=== PATIENT | female | born 1985 | race Two or more races ===

== ENCOUNTER → 2022-12-16 | Outpatient (CLI) | payer BC ==
[2022-12-16 11:54] LABS: Basophils # (auto) 0 10 ^3/uL (0-0.2); Basophils % (auto) 0.3 % (0.0-2.0); Eosinophils # (auto) 0.2 10 ^3/uL (0-0.8); Eosinophils % (auto) 1.6 % (0.0-7.0); Hematocrit 39.6 % (36.0-46.0); Hemoglobin 13.7 g/dL (12.2-16.2); Lymphocytes # (auto) 2.5 10 ^3/uL (0.4-5.4); Lymphocytes % (auto) 16.6 % (10.0-50.0); Mean Corpuscular Hemoglobin 27.8 pg (28.0-32.0); Mean Corpuscular Hgb Conc. 34.5 g/dL (32.0-36.0); Mean Corpuscular Volume 80.4 fL (80.0-100.0); Monocytes # (auto) 0.6 10 ^3/uL (0-1.3); Monocytes % (auto) 4.1 % (0.0-12.0); Neutrophils # (auto) 11.8 10 ^3/uL (1.6-8.6); Neutrophils % (auto) 77.4 % (37.0-80.0); Nucleated Red Blood Cells % 0.1 %; Red Blood Cells 4.93 10^6/uL (4.0-5.20); White Blood Cell 15.3 10^3/uL (4.4-10.8)
[2022-12-16 12:08] LABS: Urine Bacteria NONE SEEN /hpf (None Seen); Urine Blood Negative /uL (Negative); Urine Specific Gravity 1.019 (1.001-1.035); Urine WBC 1 /hpf (0 - 5)
[2022-12-16 12:22] LABS: Albumin 3.4 g/dL (3.4-5.0); Potassium 4.4 mmol/L (3.5-5.1)
[2022-12-16 12:29] LABS: BUN/Creatinine Ratio 10.3 (10.0-20.0); Bilirubin, Total 0.3 mg/dL (0.2-1.0); Calcium 9.2 mg/dL (8.5-10.1); Total Protein 7.7 g/dL (6.4-8.2); Uric Acid 4.8 mg/dL (2.6-6.0)
== END | disposition home or self-care (01) ==
LOC: LAB 11:23
PROVIDERS: ATTEND Internal Medicine
DX: I10 Essential (primary) hypertension (principal); E66.9 Obesity, unspecified; R10.11 Right upper quadrant pain; M25.522 Pain in left elbow
CPT/HCPCS: 36415; 80053; 80061; 81001; 83036; 84550; 85025; 85652

== ENCOUNTER → 2023-03-05 | Outpatient (CLI) | payer BC ==
[2023-03-05 09:11] LABS: T3 Total 1.54 ng/mL (0.60-1.81)
[2023-03-05 09:12] LABS: Free T3 3.54 pg/mL (2.3-4.2)
== END | disposition home or self-care (01) ==
LOC: LAB 07:48
PROVIDERS: ATTEND Internal Medicine
DX: E03.9 Hypothyroidism, unspecified (principal)
CPT/HCPCS: 36415; 84443; 84480; 84481

== ENCOUNTER → 2024-03-22 | Emergency (ER) | payer BC ==
[~2024-03-22] VITALS: Ht 162.6 cm; Wt 136.3 kg
[~2024-03-22] MED LIST: LIDO5DIS21 TOP
[2024-03-22 07:41] VITALS: PULSE 76; RESP 17; O2SAT 95
[2024-03-22 08:37] LABS: Eosinophils # (auto) 0.3 10 ^3/uL (0-0.8); Eosinophils % (auto) 2.7 % (0.0-7.0); White Blood Cell 12.1 10^3/uL (4.4-10.8)
[2024-03-22 08:39] LABS: Basophils # (auto) 0.1 10 ^3/uL (0-0.2); Basophils % (auto) 0.6 % (0.0-2.0); Hematocrit 37.6 % (36.0-46.0); Hemoglobin 12.6 g/dL (12.2-16.2); Lymphocytes # (auto) 3.2 10 ^3/uL (0.4-5.4); Lymphocytes % (auto) 26.8 % (10.0-50.0); Mean Corpuscular Hemoglobin 27.1 pg (28.0-32.0); Mean Corpuscular Hgb Conc. 33.4 g/dL (32.0-36.0); Mean Corpuscular Volume 81.3 fL (80.0-100.0); Monocytes # (auto) 0.7 10 ^3/uL (0-1.3); Monocytes % (auto) 5.9 % (0.0-12.0); Neutrophils # (auto) 7.8 10 ^3/uL (1.6-8.6); Nucleated Red Blood Cells % 0.2 %; Red Blood Cells 4.63 10^6/uL (4.0-5.20); Red Cell Distribution Width 15.3 % (11.8-14.3)
[2024-03-22 08:41] LABS: Urine Bacteria None Seen /hpf (None Seen)
[2024-03-22 08:49] LABS: Alanine Aminotransferase 30 U/L (7-40); Albumin 4.3 g/dL (3.2-4.8); Alkaline Phosphatase 108 U/L (46-116); Anion Gap 5 (5-15); Aspartate Aminotransferase 24 U/L (13-40); BUN/Creatinine Ratio 18.8 (10.0-20.0); Bilirubin, Total 0.4 mg/dL (0.2-1.0); Blood Urea Nitrogen 12 mg/dL (9-23); Calcium 9.5 mg/dL (8.5-10.1); Carbon Dioxide 28 mmol/L (20-30); Chloride 107 mmol/L (98-107); Glucose 114 mg/dL (74-106); Potassium 3.8 mmol/L (3.5-5.1); Sodium 140 mmol/L (136-145)
[2024-03-22 08:55] LABS: Urine Blood Negative /uL (Negative); Urine Clarity Clear (Clear); Urine Color Yellow (Yellow); Urine Mucus FEW (None Seen); Urine Protein, UAD TRACE (Negative); Urine Specific Gravity 1.034 (1.001-1.035); Urine Urobilinogen 2 mg/dL (Negative); Urine WBC 1 /hpf (0 - 5); Urine pH 5.5 (5.0-9.0)
[2024-03-22] MEDS: SODIUM CHLORIDE 0.9% 1,000 ML IV ONE (10:18)
[2024-03-22] MEDS: KETOROLAC TROMETH 30 MG/ML 1ML VIAL IV ONE ×2 (10:21→11:37)
[2024-03-22] MEDS: TAMSULOSIN HYDROCHLORIDE 0.4 MG CAP PO ONE (10:21)
[2024-03-22] MEDS: ACETAMINOPHEN 325 MG TAB PO ONE (10:21)
[2024-03-22 12:00] VITALS: BP 121/63; RESP 17; O2SAT 96
[2024-03-22 12:21] VITALS: PULSE 68
== END | disposition home or self-care (01) ==
LOC: ER 07:21 → EEVIPCON 07:21
DX: S39.011A Strain of muscle, fascia and tendon of abdomen, initial encounter (principal); R10.2 Pelvic and perineal pain; E86.0 Dehydration; K57.90 Diverticulosis of intestine, part unspecified, without perforation or abscess without bleeding; K76.89 Other specified diseases of liver; I10 Essential (primary) hypertension; E03.9 Hypothyroidism, unspecified; Z88.2 Allergy status to sulfonamides; Z91.013 Allergy to seafood; X58.XXXA Exposure to other specified factors, initial encounter; Y93.89 Activity, other specified; Y92.89 Other specified places as the place of occurrence of the external cause; Y99.8 Other external cause status
CPT/HCPCS: 36415; 74176; 80053; 81001; 84702; 85025; 96361; 96374; 96376; 99285; J1885; J7030

== ENCOUNTER → 2025-02-04 | Outpatient (CLI) | payer BC ==
[2025-02-04 13:04] LABS: Urine Bacteria None Seen /hpf (None Seen)
[2025-02-04 13:10] LABS: Basophils # (auto) 0 10 ^3/uL (0-0.2); Basophils % (auto) 0.1 % (0.0-2.0); Eosinophils # (auto) 0.2 10 ^3/uL (0-0.8); Eosinophils % (auto) 1.1 % (0.0-7.0); Hemoglobin 12.3 g/dL (12.2-16.2); Lymphocytes # (auto) 2.2 10 ^3/uL (0.4-5.4); Lymphocytes % (auto) 16.1 % (10.0-50.0); Mean Corpuscular Hemoglobin 26.8 pg (28.0-32.0); Mean Corpuscular Hgb Conc. 33.3 g/dL (32.0-36.0); Mean Corpuscular Volume 80.6 fL (80.0-100.0); Monocytes # (auto) 0.6 10 ^3/uL (0-1.3); Monocytes % (auto) 4.2 % (0.0-12.0); Neutrophils # (auto) 10.7 10 ^3/uL (1.6-8.6); Neutrophils % (auto) 78.5 % (37.0-80.0); Platelet Count (auto) 326 10^3/uL (140-450); Red Blood Cells 4.59 10^6/uL (4.0-5.20); Red Cell Distribution Width 15.2 % (11.8-14.3); White Blood Cell 13.6 10^3/uL (4.4-10.8)
[2025-02-04 13:16] LABS: Urine Blood Negative /uL (Negative); Urine Clarity Clear (Clear); Urine Color Light-Yellow (Yellow); Urine Mucus FEW (None Seen); Urine Protein, UAD Negative (Negative); Urine Squamous Epithelial Cell FEW /hpf (<5); Urine Urobilinogen Normal (Negative); Urine WBC < 1 /HPF (0-5); Urine pH 5.5 (5.0-9.0)
[2025-02-04 13:55] LABS: Creatinine, Urine 115.2 mg/dL (30.0-125.0)
[2025-02-04 14:08] LABS: CRP High Sensitivity 2.61 mg/dL (<1.0)
[2025-02-04 14:50] LABS: Erythrocyte Sedimentation Rate 19 mm/hr (0-20)
[2025-02-05 08:07] LABS: Complement C3 173 mg/dL (82-167); Rheumatoid Arthritis Factor <10.0 IU/mL (<14.0)
[2025-02-05 09:06] LABS: Anti-Nuclear Antibody Direct Negative (Negative); Anti-dsDNA Antibody 3 IU/mL (0-9); Antiscleroderma-70 Antibody <0.2 AI (0.0-0.9); RNP Antibody 0.6 AI (0.0-0.9); Sjogren's Anti-SS-A Antibody <0.2 AI (0.0-0.9); Sjogren's Anti-SS-B Antibody <0.2 AI (0.0-0.9); Smith Antibody <0.2 AI (0.0-0.9)
[2025-02-05 11:07] LABS: Thyroid Peroxidase (TPO) Ab 11 IU/mL (0-34)
[2025-02-07 17:07] LABS: Actin (Smooth Muscle) Antibody 17 Units (0-19); Mitochondrial (M2) Antibody <20.0 Units (0.0-20.0)
[2025-02-08 07:07] LABS: Antiparietal Cell Antibody 7.7 Units (0.0-20.0)
[2025-02-08 12:07] LABS: Anti-Striated Muscle Antibody Negative (Neg:<1:100)
== END | disposition home or self-care (01) ==
LOC: LAB 12:19
PROVIDERS: ATTEND Internal Medicine
DX: I10 Essential (primary) hypertension (principal); R73.03 Prediabetes; R76.0 Raised antibody titer; E66.9 Obesity, unspecified
CPT/HCPCS: 36415; 80061; 81001; 82043; 82570; 83036; 84443; 85025; 85652; 86141; 86160; 86225; 86235; 86376; 86431

== ENCOUNTER 2025-06-01 14:33 | Emergency (ER) | payer BC ==
[~2025-06-01] VITALS: Ht 165.1 cm; Wt 154.5 kg
[2025-06-01 14:40] VITALS: PULSE 103; RESP 18; O2SAT 100
[2025-06-01] MEDS: methylPREDNISolone SOD SUCC 125 MG/2 ML VL IV ONE (14:42)
[2025-06-01] MEDS: IPRATROPIUM BROM 0.5 MG/2.5ML INH SOL NEB ONE ×2 (14:56→16:30)
[2025-06-01] MEDS: ALBUTEROL SULF 2.5 MG/0.5ML(0.5%) NEB SOLN NEB ONE ×2 (14:56→16:29)
--- NOTE | 2025-06-01 14:56 | ED.PDOC ---
HPI Allergic reaction HPI Comments 40-year-old female, with a history of shellfish allergies, presents with chief complaint of shortness of breath and generalized itching sensation status post known allergen exposure. Patient reports eating a clam chowder soup bread bowl by accident for lunch, thinking it that potato chowder soup, instead. Denies any throat or facial swelling, nausea, vomiting, or further associated symptoms. Chief Complaint: Allergic Reaction Time Seen by MD: 14:30 Reviewed Notes: Nurses Notes, Medications, Allergies Allergies: Coded Allergies: Shellfish Allergy (Verified Allergy, Unknown, 03/22/24) Sulfa Antibiotics (Verified Allergy, Unknown, 03/22/24) Sulfamethoxazole w/Trimethoprim (Verified Allergy, Unknown, 06/01/25) Home Meds Active Scripts Lidocaine (LIDODERM 5% TOPICAL PATCH) 1 Patch Ph, 1 PATCH TOP DAILY, #30 PATCH 1 Refill Prov:RICARDO OREILLY MD 03/22/24 Information Source: Patient Mode of Arrival: Ambulatory Past Medical History PAST MEDICAL HISTORY: HTN, Thyroid Past Medical History (Other): Morbid obesity Surgical History: Denies all surgeries HAND TRIMMER History: No Pertinent HAND TRIMMER History Family History Family History: Reviewed,noncontributory to illness, No family hx of Cancer, No family hx of DM, No family hx of Heart monica, No family hx of HTN, No family hx ofKidney monica, No family hx of Liver monica, No family hx of Lung monica, No family hx of Stroke Social History Smoker: Non-Smoker Alcohol: Denies ETOH Use Drugs: Denies Drug Use Lives In: Home All Other Systems: Reviewed and Negative (Comprehensive review of systems are negative unless otherwise stated in HPI) Physical Exam General Appearance: Moderate Distress HEENT: Normal ENT Inspection, Pharynx Normal, TMs Normal Neck: Full Range of Motion, Non-Tender, Normal, Normal Inspection Respiratory: Chest Non-Tender, Lungs Clear, No Accessory Muscle Use, No Respiratory Distress, Normal Breath Sounds Cardiovascular: No Edema, No JVD, No Murmur, No Gallop, Normal Peripheral Pul ses, Regular Rate/Rhythm Breast Exam: Deferred Gastrointestinal: No Organomegaly, Non Tender, No Pulsatile Mass, Normal Bowel Sounds, Soft Genitalia: Deferred Pelvic: Deferred Rectal: Deferred Extremities: No calf tenderness, Normal capillary refill, Normal inspection, Normal range of motion, Non-tender, No pedal edema Musculoskeletal : Apperance: Normal Neurologic: Alert, 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 Was a procedure done?: No Differential diagnosis (all) Differential Diagnosis: Anaphylaxis, Angioedema, Other (Known allergen exposure) X-Ray, Labs, Meds, VS Vital Signs Date Time Temp Pulse Resp B/P (MAP) Pulse Ox O2 Delivery O2 Flow Rate FiO2 06/01/25 16:29 16 93 Room Air* 0 21 06/01/25 14:56 20 100 Simple Mask* 7 60 06/01/25 14:51 102 24 179/114 100 Current Medications Medications (Trade) Dose Ordered Sig/Michelle Route Start Time Stop Time Status Last Admin Epinephrine HCl 0.3 mg ONCE ONCE SC 06/01/25 14:45 06/01/25 14:46 DC 06/01/25 14:42 Methylprednisolone Sodium Succinate (Solu Medrol) 125 mg ONCE ONCE IV 06/01/25 14:45 06/01/25 14:46 DC 06/01/25 14:42 Ipratropium [place] (Atrovent Medneb) 0.5 mg ONCE ONCE NEB 06/01/25 14:45 06/01/25 14:47 DC 06/01/25 14:56 Albuterol (Ventolin Medneb) 5 mg ONCE ONCE NEB 06/01/25 14:45 06/01/25 14:47 DC 06/01/25 14:56 Ondansetron HCl (Zofran) 4 mg ONCE ONCE IV 06/01/25 14:45 06/01/25 14:47 DC 06/01/25 15:09 Albuterol (Ventolin Medneb) 5 mg ONCE ONCE NEB 06/01/25 16:30 06/01/25 16:31 DC 06/01/25 16:29 Ipratropium [place] (Atrovent Medneb) 0.5 mg ONCE ONCE NEB 06/01/25 16:30 06/01/25 16:31 DC 06/01/25 16:30 Patient alert. Complaining of shortness a breath. Vitals stable. Answering all questions. She ate seafood which she is allergic to. Accidental. Was given steroid. Was given breathing treatment. Anxious. Feeling much better after treatment. Satisfied with the treatment plan. Was given prescription of prednisone. Explained to the patient. Was told to follow up with her primary care physician. Was told to come back if there is any problem. Time of 1ST Reevaluation: 15:00 Reevaluation 1ST: Unchanged Patient Education/Counseling: Diagnosis, Treatment, Need For Follow Up Family Education/Counseling: No Family Present SEPSIS Sepsis Screen Vital Signs Date Time Temp Pulse Resp B/P (MAP) Pulse Ox O2 Delivery O2 Flow Rate FiO2 06/01/25 16:29 16 93 Room Air* 0 21 06/01/25 14:56 20 100 Simple Mask* 7 60 06/01/25 14:51 102 24 179/114 100 Medications Medications Dose Ordered Sig/Michelle Route Start Time Stop Time Status Last Admin Dose Admin Albuterol 5 mg ONCE ONCE NEB 06/01/25 14:45 06/01/25 14:47 DC 06/01/25 14:56 Albuterol 5 mg ONCE ONCE NEB 06/01/25 16:30 06/01/25 16:31 DC 06/01/25 16:29 Epinephrine HCl 0.3 mg ONCE ONCE SC 06/01/25 14:45 06/01/25 14:46 DC 06/01/25 14:42 Ipratropium [place] 0.5 mg ONCE ONCE NEB 06/01/25 14:45 06/01/25 14:47 DC 06/01/25 14:56 Ipratropium [place] 0.5 mg ONCE ONCE NEB 06/01/25 16:30 06/01/25 16:31 DC 06/01/25 16:30 Methylprednisolone Sodium Succinate 125 mg ONCE ONCE IV 06/01/25 14:45 06/01/25 14:46 DC 06/01/25 14:42 Ondansetron HCl 4 mg ONCE ONCE IV 06/01/25 14:45 06/01/25 14:47 DC 06/01/25 15:09 Departure 1 Departure Time of Disposition: 15:29 Impression: Primary Impression: Allergic reaction Qualified Codes: T78.40XA - Allergy, unspecified, initial encounter Disposition: HOME / SELF CARE / HOMELESS Condition: Good e-Prescriptions Prednisone (Prednisone) 10 Mg Tab 10 MG PO DAILY for 5 Days, #5 MG Prov: JESSICA,STONE MD 06/01/25 Discharged With: Self Critical Care Note Critical Care Time?: No Stability Stability form required: No Heart Score Heart Score: Heart Score Response (Comments) Value History N/A 0 EKG N/A 0 Age N/A 0 Risk Factors N/A 0 Troponin N/A 0 Total 0 I personally scribed for STONE LOPEZ MD ([email or web address]) on 06/01/25 at 14:56. Electronically submitted by Misael Ring ([email or web address]). STONE LOPEZ MD Jun 01, 2025 14:56
[2025-06-01] MEDS: ONDANSETRON HCL 4 MG/2 ML VIAL IV ONE (15:09)
[2025-06-01] MEDS ORDERED: PRED10TA PO (16:39)
[2025-06-01 17:00] VITALS: BP 142/85; PULSE 110; RESP 20; O2SAT 98
== END 2025-06-01 17:20 | disposition home or self-care (01) ==
LOC: ER 14:33 → EEVIPCON 14:33 → ER 17:20
DX: L29.9 Pruritus, unspecified (principal); T78.40XA Allergy, unspecified, initial encounter; Z88.2 Allergy status to sulfonamides; Z88.1 Allergy status to other antibiotic agents; X58.XXXA Exposure to other specified factors, initial encounter
CPT/HCPCS: 94640; 96372; 96374; 96375; 99285; J2405